=== PATIENT | male | born 1945 | race Caucasian/White ===

== ENCOUNTER 2023-10-24 10:29 | Day surgery (SDC) | payer MEDICARE, OTHER, SELFPAY ==
[2023-10-24] VITALS (7 sets, daily range): BP systolic 121–154; BP diastolic 67–81; BMI 33.7
--- NOTE | 2023-10-24 11:06 | W.ICD.CONTRA ---
Post ICD/DISPUTE SPECIALIST-D
-
History of [place]?: Yes
LV Function
Left ventricular function study result?: Ejection Fraction </= 35%
ACEI/ARB/ARNI
Patient already on ACEI/ARB/ARNI: Yes
Beta-Lori
Patient already on Beta Lori: Yes
[2023-10-24 11:22] LABS: Glucose - Point of Care 144 mg/dl (70-99)
--- NOTE | 2023-10-24 16:15 | ITS.CL.ICD ---
Otolaryngologist - ICD
Implantable Cardioverter Defibrillator
Procedure Report:
Date of Procedure: October 25, 2023.
Procedures: ICD generator change: ICD Pulse Generator Explantation and ICD Pulse Generator Implantation.
Indication: Primary prevention ICD. Prior myocardial infarction. LVEF 28% by echocardiography. The patient's life expectancy exceeds one year. Heart failure class 2. Heart failure duration: more than 5 years.
Performing physician: Juwan Agee MD, [facility].
Implant: ICD Pulse Generator: [employer]; Model# D121; Serial# [id number].
Explanted ICD Pulse Generator (Implanted 07/27/2010): [employer]; Model E110; Serial# [id number].
Retained Leads (Implanted 04/10/2004):
RA: [employer]; Model# 4087; Serial# [id number].
RV: [employer]; Model# 0184; Serial# [id number].
Technique: A time out was performed. The procedure site was identified. The patient was anesthetized by the anesthesia service. Preoperative cefazolin was administered prior to the skin incision. The patient was prepped and draped in the usual
fashion. Local anesthetic was applied to the left prepectoral subcutaneous tissue. A 3 inch incision was made over the pulse generator with a PlasmaBlade. The capsule was entered with Bovie cautery. The old ICD pulse generator was explanted. No
cautery was applied to the lead system. The leads were appropriately attached to the new ICD pulse generator. The pocket was irrigated with antibiotic solution. Hemostasis was excellent. The device and leads were placed in the pocket. The incision
was closed in three layers with absorbable suture. Steri-strips and a silver impregnated dressing were applied. The estimated blood loss was less than 5 mL. There were no complications. No fluoroscopy was used.
Lead Analysis:
RA lead: P: 3.7 mV; Threshold: 1.1 V @ 0.4 ms; Impedance: 503 ohms.
RV lead: R: 19 mV; Threshold: 1 V @ 0.4 ms; Impedance: 450 ohms.
Final Programming: VT/VF 200 bpm; [place]: DDD 60-130 bpm. Monitor zone at 170 bpm.
Conclusion: Uncomplicated ICD change. The ICD system is [ ] MRI safe/conditional.
Recommendation: Routine post ICD care.
cc: Nicci Sanabria MD and Christelle Blue DO.
== END 2023-10-24 14:45 | disposition home or self-care (01) ==
LOC: CATH 10:29
PROVIDERS: ATTENDING PHYSICIAN Internal Medicine Cardiovascular Disease; FAMILY PHYSICIAN Family Medicine; REFERRING PHYSICIAN Internal Medicine Cardiovascular Disease
DX: Z45.02 Encounter for adjustment and management of automatic implantable cardiac defibrillator (principal); I50.22 Chronic systolic (congestive) heart failure; Z79.899 Other long term (current) drug therapy; I25.5 Ischemic cardiomyopathy; E11.9 Type 2 diabetes mellitus without complications; I13.10 Hypertensive heart and chronic kidney disease without heart failure, with stage 1 through stage 4 chronic kidney disease, or unspecified chronic kidney disease; E11.22 Type 2 diabetes mellitus with diabetic chronic kidney disease; N18.9 Chronic kidney disease, unspecified; I25.2 Old myocardial infarction; Z87.891 Personal history of nicotine dependence; I25.10 Atherosclerotic heart disease of native coronary artery without angina pectoris; Z95.1 Presence of aortocoronary bypass graft; Z79.82 Long term (current) use of aspirin; Z79.01 Long term (current) use of anticoagulants; Z79.4 Long term (current) use of insulin; Z95.5 Presence of coronary angioplasty implant and graft; I48.0 Paroxysmal atrial fibrillation; Z86.73 Personal history of transient ischemic attack (TIA), and cerebral infarction without residual deficits
CPT/HCPCS: 33263; 82962; 93005; C1721